=== PATIENT | male | born 1950 | race Caucasian/White ===

== ENCOUNTER → 2020-05-11 13:44 | Outpatient (CLI) | payer MEDICARE, SELFPAY ==
--- NOTE | ~2020-05-11 | CT_ITS ---
EXAMINATION: CT abdomen pelvis wo con DATE: 05/11/2020 15:13 INDICATION: Left lower quadrant pain. Status post antibiotic treatment. TECHNIQUE: Computed tomography (CT) of the abdomen and pelvis was performed without intravenous contr ast. The dose-length product was 594.08 mGy-cm. Automated exposure control and iterative reconstructi on technique were employed. COMPARISON: None. FINDINGS: Heart size is normal. No significant pleural or pericardial effusion. Colonic diverticulosi s without evidence for diverticulitis. Nonobstructive bowel gas pattern. Normal appendix. Enlarged pr ostate gland. The liver, spleen, pancreas, adrenal glands and kidneys are unremarkable. Gallbladder is distended. N o free air or free fluid. Moderate lower thoracic and lumbar spondylosis. No osteolytic or osteoblast ic lesions. IMPRESSION: 1. No acute abdominal abnormality. 2: Enlarged prostate gland. Reviewed, dictated and finalized at location A. HER SCREEN REPAIRER
== END ==
PROVIDERS: PCP Family Medicine; Visit Provider Physician Assistant
DX: R10.9 Unspecified abdominal pain (principal); N40.0 Benign prostatic hyperplasia without lower urinary tract symptoms
CPT/HCPCS: 74176

== ENCOUNTER 2021-04-01 13:31 | Outpatient (CLI) | payer MEDICARE, SELFPAY ==
--- NOTE | ~2021-04-01 | US_ITS ---
EXAMINATION: US carotid duplex BI EXAM DATE: 04/01/2021 14:02 INDICATION: H53.9 - Unspecified visual disturbance. TECHNIQUE: Grayscale, color and pulsed Doppler images of the cervical carotid arteries were obtained . The degree of vessel stenosis is placed in one of the following categories: normal, <50% stenosis, 50-69% stenosis, >=70% stenosis but less than near-occlusion, near-occlusion, or occlusion. Note that percent stenosis relative to normal distal artery lumen diameter is indirectly measured from velocit y measurements as described by Collin, et al. Radiology 2003; 229:340-346. There is no prior study fo r comparison. FINDINGS: There is no occasional prolonged diastolic period. RIGHT SIDE: Right common carotid artery peak systolic velocity (PSV in cm/s): 82 Right bulb/internal carotid artery peak systolic velocity (PSV in cm/s): 135 Right internal carotid artery end diastolic velocity (EDV in cm/s): 34 Right ICA/CCA peak systolic ratio: 1.6 Right external carotid artery peak systolic velocity (PSV in cm/s): 84 Right vertebral artery antegrade flow: yes There is no focal plaque identified. LEFT SIDE: Left common carotid artery peak systolic velocity (PSV in cm/s): 102 Left bulb/internal carotid artery peak systolic velocity (PSV in cm/s): 135 Left internal carotid artery end diastolic velocity (EDV in cm/s): 51 Left ICA/CCA peak systolic ratio: 1.3 Left external carotid artery peak systolic velocity (PSV in cm/s): 72 Left vertebral artery antegrade flow: yes There is mild carotid bulb plaque. Velocity and Doppler waveforms in the common and internal carotid arteries is normal. IMPRESSION: 1. Normal right internal carotid artery. 2. Less than 50% stenosis left internal carotid artery. 3. Occasionally prolonged diastolic period. VPC? Correlate with EKG. > Reviewed, dictated and finalized at location A.
== END 2021-04-01 13:32 | disposition home or self-care (01) ==
LOC: ANHIMG 13:32
PROVIDERS: PCP Family Medicine; Visit Provider Family Medicine
DX: H53.9 Unspecified visual disturbance (principal); I65.22 Occlusion and stenosis of left carotid artery
CPT/HCPCS: 93880

== ENCOUNTER 2022-05-11 09:04 | Outpatient (CLI) | payer MEDICARE, SELFPAY ==
--- NOTE | ~2022-05-11 | NM_ITS ---
NUCLEAR MEDICINE CARDIAC GATED STRESS TEST: HISTORY: Chest pain. TECHNIQUE: Rest images were obtained following intravenous administration of 10.4 mCi Tc99m tetrofosm in (Myoview). The patient was infused intravenously with Lexiscan (regadenoson). Then, 32.3 mCi Tc99m tetrofosmin (Myoview) was administered intravenously, and stress images were obtained. Data was emre nstructed into short axis and horizontal and vertical long axis SPECT images. Gated SPECT images were also obtained. Comparison: None FINDINGS: There are no significant perfusion defects seen on the stress or rest SPECT images. There is normal left ventricular wall motion. Left ventricular ejection fraction is 62%. IMPRESSION: Normal study without findings to indicated ischemia by myocardial perfusion scintigraphy. Reviewed, dictated and finalized at location [] TEGIC PARTNERSHIP REPRESENTATIVE IMPRESSION: Normal study without findings to indicated ischemia by myocardial perfusion sci ntigraphy.
--- NOTE | 2022-05-11 09:28 | EST_ITS ---
Patient Info Name: Baljit Dickey Age: 72 years : 1950 Gender: Male Ht: 72 in Wt: 170 lbs BSA: 1.98 m2 HR: 66 bpm BP: 131 / 64 mmHg Heart Rhythm: Sinus Rhythm Exam Date: 05/11/2022 10:25 AM Exam Location: [facility] Stress Patient Status: Outpatient Admit Date: 05/11/2022 Staff Ordering Physician: Berhane Frank MD Attending Provider: Berhane Frank MD Exercise Technologist: Yamile Frederick CT Exercise Physician: Kelin Batres MD Exam Type: CA stress mireya w NM Study Info Indications R07.9 - Chest pain, unspecified A regadenoson stress test was performed. Summary 1. No abnormal ST/T wave changes diagnostic of ischemia with Lexiscan. 2. Frequent PVCs at rest and stress. 3. Please correlate with nuclear medicine images, reported separately. Protocol: Lexiscan Stress ECG Details Stage: REST Duration (min): 2 min : 6 sec HR (bpm): 66 SBP (mmHg): 131 DBP (mmHg): 84 Stage: REST Duration (min): 10 min : 44 sec HR (bpm): 70 SBP (mmHg): 131 DBP (mmHg): 84 Stage: STAGE 1 Duration (min): 1 min : 0 sec HR (bpm): 91 SBP (mmHg): 159 DBP (mmHg): 91 Stage: RECOVERY Duration (min): 1 min : 0 sec HR (bpm): 94 SBP (mmHg): 159 DBP (mmHg): 91 Stage: RECOVERY Duration (min): 2 min : 0 sec HR (bpm): 92 SBP (mmHg): 159 DBP (mmHg): 91 Stage: RECOVERY Duration (min): 3 min : 0 sec HR (bpm): 88 SBP (mmHg): 126 DBP (mmHg): 86 Stage: RECOVERY Duration (min): 3 min : 25 sec HR (bpm): 82 SBP (mmHg): 126 DBP (mmHg): 86 Rest HR: 70 bpm Peak HR: 99 bpm Rest Sys BP: 131 mmHg Peak Sys BP: 159 mmHg Max Pred HR: 147 bpm % Max Pred HR: 67 % Target HR: 125 bpm Max RPP: 15,741 bpm*mmHg Total Time: 1 min : 0 sec Rest Holliday BP: 84 mmHg Peak Holliday BP: 91 mmHg Total Dose: 0.4 mg Resting ECG Sinus rhythm. Stress ECG Sinus rhythm. No abnormal ST/T wave changes diagnostic of ischemia with Lexiscan. Arrhythmias Frequent PVCs at rest and stress. Report Signatures
== END 2022-05-11 09:05 | disposition home or self-care (01) ==
PROVIDERS: PCP Emergency Medicine; Visit Provider Emergency Medicine
DX: R07.9 Chest pain, unspecified (principal)
CPT/HCPCS: 78452; 93017; A9502; J2785

== ENCOUNTER 2022-05-27 11:23 | Emergency (ER) | payer MEDICARE, SELFPAY ==
[2022-05-27 11:36] VITALS: BP 140/80; PULSE 62; RESP 20; TEMP 36.4; O2SAT 98
--- NOTE | 2022-05-27 12:11 | ED.ANXIETY ---
HPI - Anxiety General Chief Complaint: Anxiety Stated Complaint: anxiety Time Seen by Provider: 05/27/22 11:46 History of Present Illness HPI narrative: Patient is a 72-year-old male here for evaluation of anxiety. Patient states that he has felt anxious and depressed for the past 2 years after his and was started on Lexapro by his PCP. He denies suicidal ideation or homicidal ideation. Reports difficulty sleeping, has been taking Xanax in the past but was told by his doctor to cut back on use of this due to high risk of dependency. He was started on Ambien several days ago but states that it is not helping his sleep. Presents today due to increased anxiety, states I am not sure what to do . He does have a prescription for Xanax at home that he has not been taking. Related Data Home Medications Medication Instructions Recorded Confirmed aspirin 81 mg chewable tablet 81 mg PO DAILY 02/03/22 03/07/22 Allergies Allergy/AdvReac Type Severity Reaction Status Date / Time paroxetine Allergy Unknown Does not Verified 05/26/22 09:40 like side effects Review of Systems Review of Systems: Gen: Reports anxiety. Denies fevers or chills Eyes: Denies eye pain or visual change ENT: Denies congestion Respiratory: Denies shortness of breath or cough CV: Denies chest pain or palpitations GI: Denies abdominal pain nausea, emesis or diarrhea denies burning, urgency, frequency or hematuria Musculoskeletal: Denies back pain or muscle pain Neuro: Denies numbness, tingling, weakness or focal weakness Skin: Denies rash Except as documented, all other systems reviewed and negative [facility] Family History Family History Mother Diabetes mellitus Father Family history of alcoholism Sibling Family history of alcoholism Social History Social History Social History: Caffeine-coffee daily Smoking status: Former smoker Smoking end date: 05/29/88 Alcohol intake: current Substance use type: does not use Lack of Transportation: No Lack of Food: Never True Current Housing: I Have Housing Concerned About Future Housing: No Difficulty Paying Gas/Electric Bills: No Difficulty Paying for Meds: No Currently Unemployed: No Education: High School Diploma/GED Difficulty w/ Childcare or Family Care: No Exam Narrative: APPEARANCE: Well appearing, no pain in distress, well-nourished. Head: Normocephalic and atraumatic. EYES: PERRLA/EOMI, conjunctivae clear NOSE: No nasal drainage EARS: External ear normal in appearance THROAT: Oropharynx is clear. Mucous membranes are moist. NECK: Supple. No adenopathy, no masses. RESPIRATORY: Airway patent, respirations nonlabored. Clear to auscultation bilaterally, no rales, rhonchi, wheezing. CARDIOVASCULAR: Regular rate and rhythm without murmurs, rubs, or gallops. ABDOMINAL: Normoactive bowel sounds. Soft, nontender, nondistended. No rebound tenderness or guarding. MUSCULOSKELETAL: Extremities are warm and well-perfused. Moves all extremities well. No edema. NEURO: Normal speech. No focal neurologic deficits. SKIN: Skin is warm and dry. No rashes. PSYCHIATRIC: Normal affect/mood.. Course Vital Signs Vital signs: Vital Signs Temperature 97.6 F 05/27/22 11:36 Pulse Rate 62 05/27/22 11:36 Respiratory Rate 20 05/27/22 11:36 Blood Pressure 140/80 05/27/22 11:36 Pulse Oximetry 98 05/27/22 11:36 Oxygen Delivery Room Air 05/27/22 11:36 Temperature 97.6 F 05/27/22 11:36 Pulse Rate 62 05/27/22 11:36 Respiratory Rate 20 05/27/22 11:36 Blood Pressure 140/80 05/27/22 11:36 Pulse Oximetry 98 05/27/22 11:36 Oxygen Delivery Room Air 05/27/22 11:36 MDM - Anxiety MDM Narrative Medical decision making narrative: 72 year old male with history of anxiety here for evaluation of increased anxiety this mor
== END 2022-05-27 12:45 | disposition home or self-care (01) ==
PROVIDERS: Emergency Provider Physician Assistant; PCP Emergency Medicine
DX: F41.9 Anxiety disorder, unspecified (principal); Z87.891 Personal history of nicotine dependence
CPT/HCPCS: 99281

== ENCOUNTER → 2023-01-24 13:43 | Outpatient (CLI) | payer MEDICARE, SELFPAY ==
--- NOTE | ~2023-01-24 | XR_ITS ---
XR chest 2V DATE: 01/24/2023 13:53 INDICATION: Cough for one month TECHNIQUE: 2 views COMPARISON: None FINDINGS: Normal heart size. No hilar or mediastinal enlargement. No pulmonary infiltrate or consol idation, pulmonary vascular congestion or pleural effusion or pneumothorax. Degenerative spurring of the thoracic spine. IMPRESSION: No active cardiopulmonary disease Reviewed, dictated and finalized at location L.
== END ==
PROVIDERS: PCP Family Medicine; Visit Provider Physician Assistant
DX: R05.9 Cough, unspecified (principal)
CPT/HCPCS: 71046

== ENCOUNTER 2023-03-14 09:08 | Outpatient (CLI) | payer MEDICARE, SELFPAY ==
--- NOTE | 2023-03-17 15:17 | WPDHOMESLEEP ---
Sleep Study - Home Unattended Date of Study: 03/14/23 Ordering Provider: Mac Young PA-C Interpreting Provider: Meghan Rodriguez, DO Home Sleep Study Type: Watch PAT Height: 1.83 m Weight: 79.379 kg Body Mass Index: 23.7 Neck Circumference (inches): 15 Rawlins: 5 Reason for Sleep Study Unrefreshing sleep, daytime hypersomnia Sleep History The patient is a 72-year-old with hypertension, hyperlipidemia, depression, GERD, anxiety, nocturia and history of tobacco use that had a sleep study ordered by his primary care for evaluation of sleep apnea. the patient is retired from working at the [employer]. He rarely awakens from sleep short of breath. He occasionally awakens at night with heartburn, belching or cough. He denies having trouble sleeping when he has a cold. He occasionally wakes up gasping for air throughout the night. He denies having breathing problems at night observed by himself or others. He rarely sweats excessively at night. He rarely has heart palpitations or irregular heartbeats during the night. He frequently falls asleep during the day but never while driving. He denies sleep paralysis. He occasionally experiences vivid dreamlike scenes upon awakening or falling asleep. He denies feeling afraid of going to sleep. He rarely has nightmares. He occasionally remembers his dreams. He occasionally has thoughts racing through his mind. He occasionally feels sad or depressed. He rarely has anxiety. He occasionally has muscular tension. He rarely notices parts of his body jerk. He denies kicking during the night. He denies having crawling and aching feelings in his legs and denies having leg pain during the night. He rarely grinds his teeth during sleep but never awakens with morning jaw pain. He is occasionally bothered by pain during the day but rarely awakened by pain during the night. He frequently wakes up feeling stiff morning. He occasionally wakes up with sore or achy muscles. He frequently wakes up with pain in the neck, spine or other joints. He goes to bed at 10:45 a.m. p.m. on both weekdays and weekends. He is able to fall asleep within 5 minutes. He wakes up 3 times throughout the night to urinate and is able to fall back asleep within 10-15 minutes. He wakes up at 9:00 a.m. on both weekdays and weekends. He typically gets 9-1/2 hours of sleep per night. He will stay in bed for 15 minutes after waking up in the morning. He currently lives alone. He denies consuming any caffeinated beverages within 2 hours of bedtime. He denies engaging in physical exercise before bedtime. He will watch television before falling asleep. He will take naps in the afternoon or the evening that are a minimum of 1. He consumes 1.5 cups of caffeinated beverage daily. He will have 2 alcoholic beverages twice weekly. He is a former smoker. He denies recreational drug use. [facility] Family History Family History Mother Diabetes mellitus Father Family history of alcoholism Sibling Family history of alcoholism Social History Social History Social History: Caffeine-coffee daily Smoking status: Former smoker Smoking end date: 05/29/88 Alcohol intake: current Substance use type: does not use Lack of Transportation: No Lack of Food: Never True Current Housing: I Have Housing Concerned About Future Housing: No Difficulty Paying Gas/Electric Bills: No Difficulty Paying for Meds: No Currently Unemployed: No Education: High School Diploma/GED Difficulty w/ Childcare or Family Care: No Medications Home Medications Medication Instructions Recorded Confirmed Type fluticasone propionate 50 2 spray intranasal DAILY #50 mL 12/28/21 02/17/23 Rx mcg/actuation nasal spray,suspension (Flonase Allergy Relief) aspirin 81 mg chewable tablet 81 mg PO DAILY 02/03/22
[2023-03-17 15:32] VITALS: BMI 23.7
--- NOTE | 2023-03-28 14:48 | SLEEP ---
new calls [phone]
== END 2023-03-15 12:00 | disposition home or self-care (01) ==
LOC: ANHCSM 09:09
PROVIDERS: PCP Family Medicine; Visit Provider Physician Assistant
DX: G47.33 Obstructive sleep apnea (adult) (pediatric) (principal)
CPT/HCPCS: 95800

== ENCOUNTER 2023-03-27 10:10 | Outpatient (CLI) | payer MEDICARE, SELFPAY ==
[2023-04-16 13:23] VITALS: BMI 23.7
--- NOTE | 2023-04-16 13:23 | WPDSLEEPSTUD ---
Sleep Study Date of Study: 03/27/23 Ordering Provider: Mac Young PA-C Interpreting Physician: Tiffani Pinto MD Sleep Study Type: CPAP Titration Height: 1.83 m Weight: 79.379 kg Body Mass Index: 23.7 Neck Circumference (inches): 15 Boyd: 5 Reason for Sleep Study * 03/14/2023 home sleep test using WatchPAt showing Moderate obstructive sleep apnea, apnea-hypopnea index 24.9, desaturation 86% and a central apnea index of 4.6. The patient had Jamal-Farrell respiration for 11.5% of the home sleep test. For this reason he is returning for a PAP titration. He is not a candidate for auto PAP. Sleep History Baljit Dickey had a home sleep test 03/14/23 showing moderate obstructive sleep apnea with an overall AHI 24.9 with desaturation down to 86% as well as central apneas. He returns for a titration. He is 72 years old with hypertension, hyperlipidemia, depression, GERD, anxiety, nocturia and history of tobacco. He is retired from working at the [employer]. He rarely awakens from sleep short of breath. He occasionally awakens at night with heartburn, belching or coughing. He denies having trouble sleeping when he has a cold. He occasionally wakes up gasping for air. He denies having breathing problems at night observed others. He rarely sweats excessively at night. He rarely has heart palpitations or irregular heartbeats during the night. He frequently falls asleep during the day but never while driving. He denies feeling paralyzed while having strong emotions. He occasionally experiences vivid dreamlike scenes upon awakening or falling asleep. He denies feeling afraid of going to sleep. He rarely has nightmares. He occasionally remembers his dreams. He occasionally has thoughts racing through his mind. He occasionally feels sad or depressed. He rarely has anxiety. He occasionally has muscular tension. He rarely notices parts of his body jerk. He denies kicking during the night. He denies having crawling and aching feelings in his legs and denies having leg pain during the night. He rarely grinds his teeth during sleep but never awakens with morning jaw pain. He is occasionally bothered by pain during the day but rarely awakened by pain during the night. He frequently wakes up feeling stiff morning. He occasionally wakes up with sore or achy muscles. He frequently wakes up with pain in the neck, spine or other joints. He goes to bed at 10:45 a.m. p.m. on both weekdays and weekends. He is able to fall asleep within 5 minutes. He wakes up 3 times throughout the night to urinate and is able to return to sleep within 10-15 minutes. He wakes up at 9:00 a.m. on both weekdays and weekends. He typically gets 9-1/2 hours of sleep per night. He will stay in bed for 15 minutes after waking up in the morning. He currently lives alone. He takes naps in the afternoon or the evening. Habits: He consumes 1.5 cups of caffeinated beverage daily. He will have 2 alcoholic beverages twice weekly. He is a former smoker. He denies recreational drug use. [facility] Family History Family History Mother Diabetes mellitus Father Family history of alcoholism Sibling Family history of alcoholism Social History Social History Social History: Caffeine-coffee daily Smoking packs per day: 1 Smoking cigarettes per day: 20.0 Years smoked: 20 Smoking pack-years: 20.00 Smoking status: Former smoker Smoking end date: 05/29/88 Alcohol intake: current Alcohol use details: social Substance use type: does not use Lack of Transportation: No Lack of Food: Never True Current Housing: I Have Housing Concerned About Future Housing: No Difficulty Paying Gas/Electric Bills: No Difficulty Paying for Meds: No Currently Unemployed: No Education: High School Diploma/GED Difficulty w/ Childcare or Family Care:
== END 2023-03-28 06:55 | disposition home or self-care (01) ==
LOC: ANHCSM 10:10
PROVIDERS: PCP Family Medicine; Visit Provider Physician Assistant
DX: G47.33 Obstructive sleep apnea (adult) (pediatric) (principal); G47.31 Primary central sleep apnea; G47.61 Periodic limb movement disorder; I10 Essential (primary) hypertension; E78.5 Hyperlipidemia, unspecified; K21.9 Gastro-esophageal reflux disease without esophagitis; F41.8 Other specified anxiety disorders; Z87.891 Personal history of nicotine dependence
CPT/HCPCS: 95811

== ENCOUNTER 2023-08-21 11:30 | Outpatient (CLI) | payer MEDICARE, SELFPAY ==
--- NOTE | ~2023-08-21 | XR_ITS ---
EXAMINATION: XR hip LT 2V w AP pelvis INDICATION: Left hip pain TECHNIQUE: AP view of the pelvis and two views of the left hip are obtained. COMPARISON: 06/06/2007 FINDINGS: Bone alignment is normal. There is no fracture. There is moderate right and mild left hip o steoarthritis. There is at least moderate lower lumbar spondylosis. IMPRESSION: 1. No acute osseous abnormality. Reviewed, dictated and finalized at location F.
== END 2023-08-21 11:31 | disposition home or self-care (01) ==
LOC: ANHASCIMG 11:31
PROVIDERS: PCP Family Medicine; Visit Provider Nurse Practitioner Family
DX: M25.552 Pain in left hip (principal)
CPT/HCPCS: 73502

== ENCOUNTER 2024-03-19 09:46 | Outpatient (CLI) | payer MEDICARE, SELFPAY ==
--- NOTE | ~2024-03-19 | US_ITS ---
EXAM: ABDOMEN ULTRASOUND HISTORY: R10.11 - Right upper quadrant pain COMPARISON: Reference was made to a CT examination of the abdomen and pelvis dated 05/11/2020 FINDINGS: LIVER: The liver is increased in echogenicity. The main portal vein is patent demonstrating hepatopedal flow. GALLBLADDER: The gallbladder is distended, without calcified stones. No gallbladder wall thickening o r pericholecystic fluid. BILE DUCTS: Common bile duct measures 3.2mm. PANCREAS: Limited evaluation of the pancreas secondary to overlying bowel gas IMPRESSION: Fatty infiltration of the liver. No stones within the gallbladder. Gallbladder distention, possibly physiologic. Ejection fraction evaluation of the gallbladder with nuclear medicine (nonemergently) may provide add itional information, as biliary dyskinesia can cause similar symptoms. Reviewed, dictated and finalized at location A. IMPRESSION: Fatty infiltration of the liver. No stones within the gallbladder. Gallbladder distention, possibly physiologic. Ejection fraction evaluation of the gallbladder with nuclear medicine (nonemerg ently) may provide additional information, as biliary dyskinesia can cause carlos eduardo lar symptoms.
== END 2024-03-19 09:47 | disposition home or self-care (01) ==
LOC: GOSHIMG 09:46
PROVIDERS: PCP Family Medicine; Visit Provider Family Medicine
DX: R10.11 Right upper quadrant pain (principal); K76.0 Fatty (change of) liver, not elsewhere classified
CPT/HCPCS: 76705

== ENCOUNTER 2025-01-15 11:03 | Outpatient (CLI) | payer MEDICARE, SELFPAY ==
--- NOTE | ~2025-01-15 | XR_ITS ---
XR_[id number]_CR 01/15/2025 11:34 Indication: Anesthesia of the neck Procedure: 3 views cervical spine Comparison: 09/17/2014 Findings: There is disc narrowing at C3-4 through C6-7. There is endplate sclerosis at C5-6. There are ventral osteophytes at C4-5 and C5-6. There is multilevel uncinate and facet hypertrophy. Lung apices are normal. Odontoid process is normal. Lateral masses normally aligned. Impression: 1: Progression of moderate-severe cervical spondylosis. Reviewed, dictated and finalized at location A. Impression: 1: Progression of moderate-severe cervical spondylosis.
--- NOTE | ~2025-01-15 | XR_ITS ---
XR thoracic spine 2V 01/15/2025 11:34 Indication: Anesthesia of the skin Procedure: 3 views thoracic spine Comparison: 09/17/2014 Findings: There is accentuated kyphosis. There is mild dextrocurvature of the thoracic spine. There is mild multilevel degenerative spondylosis of the thoracic spine. No paraspinal soft tissue abnormality. No acute fracture, subluxation or dislocation. Surrounding osseous structures are unremarkable. Impression: 1: Moderate thoracic spondylosis with accentuated kyphosis and mild dextrocurvature. Reviewed, dictated and finalized at location A. Impression: 1: Moderate thoracic spondylosis with accentuated kyphosis and mild dextrocurva danis.
--- OUTSIDE RECORDS SUMMARY | 2025-01-15 11:41 | XMS_ITS | Clinical Summary ---
Author Organization [facility] [address] Address [address] [place] [address] Care Team Providers Care Ice Plant Operator Name Role Phone Kelby Trujillo MD Primary Care Provider [phone] Allergies No known active allergies Medications simvastatin (ZOCOR) 20 mg tablet Take 20 mg by mouth daily 10/01/2020 Active tamsulosin (FLOMAX) 0.4 mg extended release capsule Take 0.4 mg by mouth daily 08/13/2020 Active ALPRAZolam (XANAX) 0.25 mg tablet Take 0.25 mg by mouth daily as needed 07/28/2020 Active finasteride (PROSCAR) 5 mg tablet Take 5 mg by mouth daily 10/01/[address] (NexIUM) 40 mg capsule Take 40 mg by mouth daily Active cetirizine (ZyrTEC) 10 mg tablet Take 10 mg by mouth daily Active Active Problems Problem Noted Date Diagnosed Date Other chest pain 10/15/2020 Surgical History Surgery Date Site/Laterality Comments DEEP NECK LYMPH NODE BIOPSY / EXCISION ROTATOR CUFF REPAIR Medical History Medical History Date Comments Hyperlipidemia Acid indigestion Anxiety Enlarged prostate Family History Medical History Relation Name Comments Heart disease Brother Heart attack Father Stomach cancer Mother Relation Name Status Comments Brother (Age 46) Father (Age 63) Mother (Age 82) Social History Tobacco Use Types Packs/Day Years Used Date Smoking Tobacco: Former Smokeless Tobacco: Never Personal Safety Answer Date Recorded Getting School Help Needed Not on file 05/31 Sex and Gender Information Value Date Recorded Sex Assigned at Not on file 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 Gender Identity Not on file Sexual Orientation Not on file Obstetrics History Last Filed Vital Signs Vital Sign Reading Time Taken Comments Blood Pressure 122/68 10/15/2020 12:52 PM CDT Pulse 70 10/15/2020 12:52 PM CDT Temperature - - Respiratory Rate - - Oxygen Saturation 98% 10/15/2020 12:52 PM CDT Inhaled Oxygen Concentration - - Weight 72.1 kg (159 lb) 10/15/2020 12:52 PM CDT Height 182.9 cm (6') 10/15/2020 12:52 PM CDT Body Mass Index 21.56 10/15/2020 12:52 PM CDT Plan of Treatment Not on file Insurance T MEDICARE Care Teams Ice Plant Operator Relationship Specialty Start Date End Date Kelby Trujillo MD [address] [place] [address] PCP - General Family Medicine 09/29/20
--- OUTSIDE RECORDS SUMMARY | 2025-01-15 11:41 | XMS_ITS | Clinical Summary ---
Author Organization [facility] Address [address] [place] [address] Care Team Providers Care Nutritionist Public Health Name Role Phone Isaac Rosenberg MD Primary Care Provider [phone]- [phone] Allergies No known active allergies Medications finasteride 5 MG tablet Take 5 mg by mouth daily. 10/08/2021 Active ALPRAZolam 0.25 MG tablet Take 0.25 mg by mouth every 8 (eight) hours as needed for Anxiety. 08/31/2021 Active tamsulosin 0.4 MG Cap Take 0.4 mg by mouth daily. 08/20/2021 Active cetirizine 10 MG tablet Take 10 mg by mouth daily. Active Vitamin D3, cholecalciferol , 2000 UNIT Tab tablet Take 2,000 Units by mouth daily. Active Cyanocobalamin (VITAMIN B-12 OR) Take 1 tablet by mouth daily. Active atorvastatin 40 MG tablet Take 1 tablet (40 mg total) by mouth daily. 30 tablet 11/21/2021 Active escitalopram (LEXAPRO) 10 MG tablet Take 1 tablet (10 mg total) by mouth daily. 02/14/2024 Active gabapentin (NEURONTIN) 100 MG capsule Take 1 capsule (100 mg total) by mouth 3 (three) times daily. 12/26/2023 Active losartan (COZAAR) 25 MG tablet Take 1 tablet (25 mg total) by mouth daily. 02/14/2024 Active pantoprazole EC (PROTONIX) 40 MG tablet Take 1 tablet (40 mg total) by mouth daily. 03/02/2024 Active simvastatin (ZOCOR) 20 MG tablet Take 1 tablet (20 mg total) by mouth nightly at bedtime. 01/24/2024 Active Active Problems Problem Noted Date Diagnosed Date Depression 11/20/2021 Anxiety 11/20/2021 Lightheadedness 11/19/2021 Immunizations Immunization Administration Dates Next Due MODERNA COVID-19 (12+) MRNA, LNP-S, PF, 100 MCG/ 0.5 ML DOSE 08/06/2020,07/09/2020 Social History Tobacco Use Types Packs/Day Years Used Date Smoking Tobacco: Never Smokeless Tobacco: Never Alcohol Use Standard Drinks/Week Comments Yes 0 (1 standard drink = 0.6 oz pur e alcohol) rare Sex and Gender Information Value Date Recorded Sex Assigned at Not on file Legal Sex Male 7:21 PM CDT Gender Identity Not on file Sexual Orientation Not on file Last Filed Vital Signs Vital Sign Reading Time Taken Comments Blood Pressure 142/81 03/07/2024 8:14 PM CDT Pulse 52 03/07/2024 8:15 PM CDT Temperature 36.5 C (97.7 F) 03/07/2024 5:53 PM CDT Respiratory Rate 19 03/07/2024 8:15 PM CDT Oxygen Saturation 96% 03/07/2024 8:15 PM CDT Inhaled Oxygen Concentration - - Weight 85.3 kg (188 lb 0.8 oz) 03/07/2024 5:53 P M CDT Height 180.3 cm (5' 11) 03/07/2024 5:53 PM CDT Body Mass Index 26.23 03/07/2024 5:53 PM CDT Plan of Treatment Health Maintenance Due Date Last Done Comments Colorectal Cancer Screening Colonoscopy (10 Years) 1949 Hepatitis C 1967 DTaP, Tdap and Td Vaccines ( 1 - Tdap) 1968 Pneumococcal Vaccine: 50+ Years (1 of 1 - PCV) 1999 Zoster Vaccines (1 of 2) 1999 Annual Medicare Wellness Visit 2014 COVID-19 Vaccine (3 - 2023-2 5 season) 2024 08/06/2020, 07/09/2020 RSV Immunization or 60+ Years (1 - 1-dose 75+ series) 2024 Meningococcal B Vaccine Aged Out No l onger eligible based on patient's age to complete this topic Meningococcal Vaccine Aged Out No adriana spencer eligible based on patient's age to complete this topic RSV Immunizations Under 20 Months Aged Out No longer eligible b ased on patient's age to complete this topic Insurance [employer] Advance Directives * Full Code (Latest Code Status on File) Date Activated Date Inactivated Comments 11/19/2021 2:41 PM 11/20/2021 4:38 PM Care Teams Nutritionist Public Health Relationship Specialty Start Date End Date Isaac Rosenberg MD [address] [facility] [address] [place], [place] [id number] PCP - General FAMILY PRACTICE 03/07/24
== END 2025-01-15 11:04 | disposition home or self-care (01) ==
PROVIDERS: PCP Family Medicine; Visit Provider Student in an Organized Health Care Education/Training Program
DX: M43.02 Spondylolysis, cervical region (principal); M43.04 Spondylolysis, thoracic region; M40.294 Other kyphosis, thoracic region; M43.8X4 Other specified deforming dorsopathies, thoracic region
CPT/HCPCS: 72040; 72070

== ENCOUNTER 2025-02-03 12:46 | Outpatient (CLI) | payer MEDICARE, SELFPAY ==
--- OUTSIDE RECORDS SUMMARY | 2004-08-25 06:30 | XMS_ITS | Continuity of Care Document ---
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 [address] , [address], [place], [address], [place]. tel:[phone] Family History Family Member Type Diagnosis Age At Onset No Information Payers Payer name Insurance type Covered green party ID Authoriza jinny(s) [place] [employer] [facility] [id number] Social History Type Description Quantity Date Captured Comments Sex Male Smoking Status No Information Chief Complaint And Reason For Visit No Information Reason For Referral Reason For Referral No Information History Of Present Illness Encounter Date Complaint History Of Prese nt Illness No Information Functional Status Date Functional Assessmen t No Information Instructions Date Instruction Additional Infor mation No Information Assessments Type Assessment Date No Information Patient Care Teams Name Effective Dates (start - stop) Status Members No Information
--- OUTSIDE RECORDS SUMMARY | 2025-02-03 12:52 | XMS_ITS | Clinical Summary ---
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
--- OUTSIDE RECORDS SUMMARY | 2025-02-03 12:52 | XMS_ITS | Clinical Summary ---
Author Organization [facility] Address [address] [place] [address] Care Team Providers Care Lease Out Man Name Role Phone Isaac Rosenberg MD Primary Care Provider [phone]- [phone] Allergies No known active allergies Medications finasteride [...] 2) 1999 Annual Medicare Wellness Visit 2014 RSV Immunization or 60+ Years (1 - 1-dose 75+ series) 2024 COVID-19 Vaccine (3 - 2024-2 6 season) 2025 08/06/2020, 07/09/2020 Meningococcal B Vaccine Aged Out No l [...] 2:41 PM 11/20/2021 4:38 PM Care Teams Lease Out Man Relationship Specialty Start Date End Date Isaac Rosenberg MD [address] [facility] [address] [place], [place] [id number] PCP - General FAMILY PRACTICE 03/07/24
--- NOTE | 2025-02-03 13:20 | NEURO_ITS ---
Impression: # Non-diabetic complains of numbness of hands. # Bilateral ulnar neuropathy across the elbows. # No Carpal Tunnel Syndrome. # Normal Needle/EMG exam. Nerve Conduction Studies ?Stim Site NR Peak (ms) P-T Amp (?V) Site1 Site2 Delta-P (ms) Dist (cm) Herson (m/s) Left Median Anti Sensory (2-3nd Digit) Wrist ? 4.0 13.4 Wrist 2-3nd Digit 4.4 14.0 32 Wrist ? 3.8 13.9 Wrist 2-3nd Digit 4.4 14.0 32 Right Median Anti Sensory (2-3nd Digit) Wrist ? 3.8 9.4 Wrist 2-3nd Digit 3.8 14.0 37 Wrist ? 3.6 6.7 Wrist 2-3nd Digit 3.8 14.0 37 Left Radial Anti Sensory (Base 1st Digit) Wrist ? 2.1 6.9 Wrist Base 1st Digit 2.1 0.0 Right Radial Anti Sensory (Base 1st Digit) Wrist ? 3.1 13.1 Wrist Base 1st Digit 3.1 0.0 Left Ulnar Anti Sensory (5th Digit) Wrist ? 2.6 26.9 Wrist 5th Digit 4.5 14.0 31 Right Ulnar Anti Sensory (5th Digit) Wrist ? 2.8 25.6 Wrist 5th Digit 4.6 14.0 30 ?Stim Site NR Onset (ms) O-P Amp (mV) Site1 Site2 Delta-0 (ms) Dist (cm) Herson (m/s) Left Median Motor (Abd Poll Brev) Wrist ? 3.8 2.8 Elbow Wrist 5.0 29.0 58 Elbow ? 8.8 2.2 Right Median Motor (Abd Poll Brev) Wrist ? 3.8 1.7 Elbow Wrist 5.2 30.0 58 Elbow ? 9.0 2.6 Left Ulnar Motor (Abd Dig Minimi) Wrist ? 2.7 6.0 A Elbow Wrist 5.6 31.0 55 A Elbow ? 8.3 4.8 B Elbow Wrist 4.3 23.0 53 B Elbow ? 7.0 4.7 Right Ulnar Motor (Abd Dig Minimi) Wrist ? 2.6 5.5 A Elbow Wrist 5.8 30.0 52 A Elbow ? 8.4 3.0 B Elbow Wrist 3.6 21.0 58 B Elbow ? 6.2 3.5 F Wave Studies ?NR F-Lat (ms) L-R F-Lat (ms) Left Median (Mrkrs) (Abd Poll Brev) ? 28.70 8.53 Right Median (Mrkrs) (Abd Poll Brev) ? 30.24 8.53 Left Ulnar (Mrkrs) (Abd Dig Min) ? 27.47 3.25 Right Ulnar (Mrkrs) (Abd Dig Min) ? 27.52 3.25 Electromyography ?Side Muscle Nerve Root Ins Act Fibs Amp Dur Recrt Comment Right 1stDorInt Ulnar C8-T1 Nml Nml Nml Nml Nml Right Ext Indicis Radial (Post Int) C7-8 Nml Nml Nml Nml Nml Right Ext Digitorum Radial (Post Int) C7-8 Nml Nml Nml Nml Nml Right BrachioRad Radial C5-6 Nml Nml Nml Nml Nml Right PronatorTeres Median C6-7 Nml Nml Nml Nml Nml Right Abd Poll Brev Median C8-T1 Nml Nml Nml Nml Nml Right ABD Dig Min Ulnar C8-T1 Nml Nml Nml Nml Nml Right FlexPolLong Median (Ant Int) C7-8 Nml Nml Nml Nml Nml Right Abd Poll Long Radial (Post Int) C7-8 Nml Nml Nml Nml Nml Left 1stDorInt Ulnar C8-T1 Nml Nml Nml Nml Nml Left Ext Indicis Radial (Post Int) C7-8 Nml Nml Nml Nml Nml Left Ext Digitorum Radial (Post Int) C7-8 Nml Nml Nml Nml Nml Left BrachioRad Radial C5-6 Nml Nml Nml Nml Nml Left PronatorTeres Median C6-7 Nml Nml Nml Nml Nml Left Abd Poll Brev Median C8-T1 Nml Nml Nml Nml Nml Left ABD Dig Min Ulnar C8-T1 Nml Nml Nml Nml Nml Left FlexPolLong Median (Ant Int) C7-8 Nml Nml Nml Nml Nml Left Abd Poll Long Radial (Post Int) C7-8 Nml Nml Nml Nml Nml
== END 2025-02-03 12:47 | disposition home or self-care (01) ==
PROVIDERS: PCP Family Medicine; Visit Provider Student in an Organized Health Care Education/Training Program
DX: G56.23 Lesion of ulnar nerve, bilateral upper limbs (principal)
CPT/HCPCS: 95886; 95911